=== PATIENT | male | born 1930 | race Caucasian/White ===

== ENCOUNTER 2021-11-06 03:52 | Inpatient (IN) ==
[2021-11-06] MEDS ORDERED: METOPROLOL TARTRATE 5 MG/5 ML VIAL IV ONE (04:07)
[2021-11-06] MEDS ORDERED: DILTIAZEM 25 MG/5 ML VIAL IV ONE (04:11)
[2021-11-06] MEDS ORDERED: SODIUM CHLORIDE 0.9% 1,000 ML IV STA (04:20)
[2021-11-06] MEDS ORDERED: DILTIAZEM 25 MG/5 ML VIAL IV STA (04:20)
[2021-11-06] MEDS ORDERED: METOPROLOL TARTRATE 5 MG/5 ML VIAL IV STA (04:20)
[2021-11-06] MEDS ORDERED: ASPIRIN 325 MG TABLET PO STA (04:21)
[2021-11-06 04:27] LABS: Basophils # 0.1 10*3/uL (0.0-0.2); Basophils % 1.2 % (0.0-0.8); Eosinophils # 0.2 10*3/uL (0.0-0.87); Eosinophils % 3.4 % (0.00-10.9); Hematocrit 42.6 VOL% (42.0-52.0); Hemoglobin 14.3 GM/DL (14.0-18.0); Immature Granulocytes % 0.2 %; Immature Granulocytes Absolute 0.01 #; Lymphocytes # 1.6 10*3/uL (1.4-4.0); Lymphocytes % 28.5 % (21.2-54.2); Mean Corpuscular HGB Conc 33.6 GM/DL (32-36); Mean Corpuscular Volume 91.4 FL (87-102); Mean Platelet Volume 10.9 FL (9.6-12.0); Monocytes # 0.5 10*3/uL (0.11-0.8); Monocytes % 9.2 % (1.7-12.7); Neutrophils % 57.5 % (38.7-73.9); Platelet Count 150 T/CUMM (130-400); Red Blood Count 4.66 MC/CUMM (3.8-5.5); Red Cell Distribution Width 15.3 % (9.3-17.3); White Blood Count 5.6 T/CUMM (4-12)
[2021-11-06 04:36] LABS: PT Patient Result 10.9 SECS (10.1-12.1)
[2021-11-06 04:45] LABS: Albumin 3.7 G/DL (3.4-5.0); Bilirubin,Total 0.6 MG/DL (0.20-1.00); Calcium 9.5 MG/DL (8.5-10.1); Osmolality,Calculated 280.4 MOS/KG (273-304); Potassium 3.9 MMOL/L (3.5-5.1); Total Protein 7.6 G/DL (6.4-8.2)
[2021-11-06] MEDS ORDERED: ENOXAPARIN 100 MG/ML SYRINGE SUBCUT STA (05:02)
[2021-11-06] MEDS ORDERED: ENOXAPARIN 80 MG/0.8 ML SYRINGE SUBCUT STA (05:10)
[2021-11-06] MEDS ORDERED: ACETAMINOPHEN 325 MG TABLET PO PRN (05:20)
[2021-11-06] MEDS ORDERED: MORPHINE 2 MG/1 ML SYRINGE IV PRN (05:20)
[2021-11-06] MEDS ORDERED: ONDANSETRON 4 MG/2 ML VIAL IV PRN (05:20)
[2021-11-06] MEDS ORDERED: hydrALAZINE 20 MG/1 ML VIAL IV PRN (05:20)
[2021-11-06] MEDS ORDERED: GLUCAGON 1 MG VIAL IM PRN (05:20)
[2021-11-06] MEDS ORDERED: DEXTROSE 10% 250 ML BAG IV PRN (05:32)
[2021-11-06] MEDS ORDERED: NEBIVOLOL 5 MG TABLET PO SCH (09:00)
[2021-11-06] MEDS ORDERED: ADENOSINE 6 MG/2 ML VIAL IV ONE ×2 (09:33)
[2021-11-06] MEDS ORDERED: DIAZEPAM 5 MG TABLET PO ONE (09:57)
[2021-11-06] MEDS ORDERED: diphenhydrAMINE CAP 25 MG CAPSULE PO ONE (09:57)
[2021-11-06] MEDS ORDERED: METOPROLOL SUCCINATE XL 25 MG TABLET PO SCH (10:00)
[2021-11-06] MEDS ORDERED: NITROGLYCERIN SL 0.4 MG TABLET SL PRN (10:43)
[2021-11-06 11:11] LABS: Risk Ratio 2.42; VLDL Cholesterol 21.2 MG/DL
[2021-11-06] MEDS: VALSARTAN 80 MG TABLET PO SCH (12:01)
[2021-11-06] MEDS: PANTOPRAZOLE 40 MG TABLET PO SCH (12:01)
[2021-11-06] MEDS ORDERED: MIDAZOLAM 2 MG/2 ML VIAL ONE (14:31)
[2021-11-06] MEDS ORDERED: HEPARIN/NACL 0.9% 2 UNITS/ML 2,000 UNIT/1,000 ML BAG IV ONE (14:31)
[2021-11-06] MEDS ORDERED: NITROGLYCERIN DRIP 50 MG/250 ML BOTTLE IV ONE (14:32)
[2021-11-06] MEDS ORDERED: VERAPAMIL 5 MG/2 ML VIAL ONE (14:32)
[2021-11-06] MEDS ORDERED: HEPARIN/NACL 0.9% 2 UNITS/ML 1,000 UNIT/500 ML BAG IV ONE (14:34)
[2021-11-06] MEDS ORDERED: HYDROmorphone 1 MG/1 ML SYRINGE ONE (14:49)
[2021-11-06] MEDS ORDERED: ENOXAPARIN 30 MG/0.3 ML SYRINGE ONE (15:02)
[2021-11-06] MEDS ORDERED: TIROFIBAN 5,000 MCG/100 ML PREMIX IV ONE (15:25)
[2021-11-06] MEDS ORDERED: TIROFIBAN 5,000 MCG/100 ML PREMIX IV SCH (15:32)
[2021-11-06] MEDS ORDERED: TICAGRELOR 90 MG TABLET ONE (15:57)
[2021-11-06] MEDS ORDERED: SODIUM CHLORIDE 0.9% 1,000 ML IV SCH (16:00)
[2021-11-06] MEDS: TICAGRELOR 90 MG TABLET PO SCH (20:20)
[2021-11-06] MEDS: ROSUVASTATIN 20 MG TABLET PO SCH (20:20)
[2021-11-06] MEDS ORDERED: SIMVASTATIN 20 MG TABLET PO SCH (21:00)
[2021-11-07 04:59] LABS: Basophils # 0.1 10*3/uL (0.0-0.2); Basophils % 0.8 % (0.0-0.8); Eosinophils # 0.2 10*3/uL (0.0-0.87); Eosinophils % 3.3 % (0.00-10.9); Hematocrit 34.7 VOL% (42.0-52.0); Hemoglobin 11.6 GM/DL (14.0-18.0); Immature Granulocytes % 0.3 %; Immature Granulocytes Absolute 0.02 #; Lymphocytes # 1.5 10*3/uL (1.4-4.0); Lymphocytes % 25.7 % (21.2-54.2); Mean Corpuscular HGB Conc 33.4 GM/DL (32-36); Mean Corpuscular Volume 92.3 FL (87-102); Mean Platelet Volume 11.3 FL (9.6-12.0); Monocytes # 0.6 10*3/uL (0.11-0.8); Monocytes % 10.5 % (1.7-12.7); Neutrophils % 59.4 % (38.7-73.9); Platelet Count 137 T/CUMM (130-400); Red Blood Count 3.76 MC/CUMM (3.8-5.5); Red Cell Distribution Width 15.4 % (9.3-17.3)
[2021-11-07 05:22] LABS: Calcium 8.5 MG/DL (8.5-10.1); Osmolality,Calculated 284.8 MOS/KG (273-304); Potassium 3.7 MMOL/L (3.5-5.1)
[2021-11-07 05:27] LABS: CKMB % 7.76 %
[2021-11-07 05:33] LABS: High Sensitive Troponin I* 2268.5 ng/L (0-78)
[2021-11-07] MEDS ORDERED: MAGNESIUM SULF RIDER 2 GM/50 ML PREMIX IV ONE (07:23)
[2021-11-07] MEDS: VALSARTAN 80 MG TABLET PO SCH (10:24)
[2021-11-07] MEDS: ASPIRIN EC 81 MG TABLET PO SCH (10:24)
[2021-11-07] MEDS: PANTOPRAZOLE 40 MG TABLET PO SCH (10:25)
[2021-11-07] MEDS: TICAGRELOR 90 MG TABLET PO SCH ×2 (10:25→21:23)
[2021-11-07] MEDS: ISOSORBIDE MONONITRATE 30 MG TABLET PO SCH (10:26)
[2021-11-07] MEDS: METOPROLOL TARTRATE 25 MG TABLET PO SCH ×2 (13:58→14:31)
[2021-11-07] MEDS: METOPROLOL SUCCINATE XL 25 MG TABLET PO SCH (14:03)
[2021-11-07] MEDS: ROSUVASTATIN 20 MG TABLET PO SCH (21:22)
[2021-11-08 04:47] LABS: Basophils % 0.5 % (0.0-0.8); Eosinophils # 0.2 10*3/uL (0.0-0.87); Hematocrit 33.5 VOL% (42.0-52.0); Hemoglobin 11.2 GM/DL (14.0-18.0); Immature Granulocytes % 0.4 %; Immature Granulocytes Absolute 0.03 #; Lymphocytes # 1.2 10*3/uL (1.4-4.0); Lymphocytes % 15.9 % (21.2-54.2); Mean Corpuscular HGB Conc 33.4 GM/DL (32-36); Mean Corpuscular Volume 91.3 FL (87-102); Mean Platelet Volume 11.2 FL (9.6-12.0); Monocytes # 0.9 10*3/uL (0.11-0.8); Monocytes % 11.2 % (1.7-12.7); Platelet Count 133 T/CUMM (130-400); Red Blood Count 3.67 MC/CUMM (3.8-5.5); Red Cell Distribution Width 15.1 % (9.3-17.3); White Blood Count 7.7 T/CUMM (4-12)
[2021-11-08 05:01] LABS: Calcium 8.5 MG/DL (8.5-10.1); Osmolality,Calculated 280.3 MOS/KG (273-304); Potassium 3.8 MMOL/L (3.5-5.1)
[2021-11-08] MEDS: PANTOPRAZOLE 40 MG TABLET PO SCH (08:33)
[2021-11-08] MEDS: METOPROLOL SUCCINATE XL 25 MG TABLET PO SCH (08:33)
[2021-11-08] MEDS: TICAGRELOR 90 MG TABLET PO SCH ×2 (08:34→22:10)
[2021-11-08] MEDS: ASPIRIN EC 81 MG TABLET PO SCH (08:35)
[2021-11-08] MEDS: VALSARTAN 80 MG TABLET PO SCH (08:35)
[2021-11-08] MEDS: ISOSORBIDE MONONITRATE 30 MG TABLET PO SCH (08:36)
[2021-11-08] MEDS: ROSUVASTATIN 20 MG TABLET PO SCH (22:10)
[2021-11-09 05:49] LABS: Basophils # 0.1 10*3/uL (0.0-0.2); Basophils % 0.8 % (0.0-0.8); Eosinophils # 0.3 10*3/uL (0.0-0.87); Eosinophils % 3.9 % (0.00-10.9); Hematocrit 33.7 VOL% (42.0-52.0); Hemoglobin 11.5 GM/DL (14.0-18.0); Immature Granulocytes % 0.4 %; Immature Granulocytes Absolute 0.03 #; Lymphocytes # 1.3 10*3/uL (1.4-4.0); Lymphocytes % 17.7 % (21.2-54.2); Mean Corpuscular HGB Conc 34.1 GM/DL (32-36); Mean Corpuscular Volume 90.6 FL (87-102); Mean Platelet Volume 11.5 FL (9.6-12.0); Monocytes % 13.5 % (1.7-12.7); Neutrophils % 63.7 % (38.7-73.9); Platelet Count 136 T/CUMM (130-400); Red Blood Count 3.72 MC/CUMM (3.8-5.5); Red Cell Distribution Width 15.1 % (9.3-17.3); White Blood Count 7.5 T/CUMM (4-12)
[2021-11-09 06:24] LABS: Calcium 8.9 MG/DL (8.5-10.1); Osmolality,Calculated 282.1 MOS/KG (273-304); Potassium 3.9 MMOL/L (3.5-5.1)
[2021-11-09] MEDS: ASPIRIN EC 81 MG TABLET PO SCH (09:15)
[2021-11-09] MEDS: TICAGRELOR 90 MG TABLET PO SCH (09:15)
[2021-11-09] MEDS: PANTOPRAZOLE 40 MG TABLET PO SCH (09:15)
[2021-11-09] MEDS: ISOSORBIDE MONONITRATE 30 MG TABLET PO SCH (09:15)
[2021-11-09] MEDS: VALSARTAN 80 MG TABLET PO SCH (09:15)
[2021-11-09] MEDS: METOPROLOL SUCCINATE XL 25 MG TABLET PO SCH (09:15)
[2021-11-09 12:13] VITALS: BP 121/50
== END 2021-11-09 12:34 | disposition home health service (06) | DRG 247 ==
LOC: SUATTDRO → N.ED 03:52 → N.EDINP 03:52 → N.TELES 07:58
PROVIDERS: ADMIT Hospitalist; ATTEND Family Medicine

== ENCOUNTER 2022-01-10 10:33 | Observation (INO) ==
[2022-01-10 11:02] LABS: Basophils # 0.1 10*3/uL (0.0-0.2); Basophils % 1.6 % (0.0-0.8); Eosinophils # 0.2 10*3/uL (0.0-0.87); Hematocrit 37.8 VOL% (42.0-52.0); Hemoglobin 12.7 GM/DL (14.0-18.0); Immature Granulocytes % 0.5 %; Immature Granulocytes Absolute 0.02 #; Lymphocytes # 1.1 10*3/uL (1.4-4.0); Lymphocytes % 26.1 % (21.2-54.2); Mean Corpuscular HGB Conc 33.6 GM/DL (32-36); Mean Corpuscular Volume 91.7 FL (87-102); Monocytes # 0.4 10*3/uL (0.11-0.8); Monocytes % 8.9 % (1.7-12.7); Neutrophils % 58.9 % (38.7-73.9); Platelet Count 157 T/CUMM (130-400); Red Blood Count 4.12 MC/CUMM (3.8-5.5); Red Cell Distribution Width 15.9 % (9.3-17.3); White Blood Count 4.3 T/CUMM (4-12)
[2022-01-10 11:15] LABS: PT Patient Result 10.9 SECS (10.1-12.1)
[2022-01-10 11:20] LABS: Albumin 3.4 G/DL (3.4-5.0); Bilirubin,Total 0.6 MG/DL (0.20-1.00); Calcium 9.5 MG/DL (8.5-10.1); Potassium 3.9 MMOL/L (3.5-5.1); Total Protein 6.9 G/DL (6.4-8.2)
[2022-01-10 11:24] LABS: PT Patient Result 10.9 SECS (10.1-12.1); Partial Thromboplastin Time 30.4 SECS (23.7-32.9)
[2022-01-10] MEDS ORDERED: POTASSIUM CHLORIDE 20 MEQ TABLET PO PRN ×2 (13:02)
[2022-01-10] MEDS ORDERED: MAGNESIUM SULF RIDER 2 GM/50 ML PREMIX IV PRN (13:02)
[2022-01-10] MEDS ORDERED: MAGNESIUM SULF RIDER 4 GM/100 ML PREMIX IV PRN (13:02)
[2022-01-10] MEDS ORDERED: NITROGLYCERIN SL 0.4 MG TABLET SL PRN (13:09)
[2022-01-10] MEDS: TICAGRELOR 90 MG TABLET PO SCH (20:52)
[2022-01-10] MEDS: FAMOTIDINE 20 MG TABLET PO SCH (20:52)
[2022-01-10] MEDS: METOPROLOL TARTRATE 25 MG TABLET PO SCH (20:52)
[2022-01-10] MEDS ORDERED: ROSUVASTATIN 20 MG TABLET PO SCH (21:00)
[2022-01-10] MEDS ORDERED: ASPIRIN EC 81 MG TABLET PO SCH (21:00)
[2022-01-11 04:57] LABS: Basophils # 0.1 10*3/uL (0.0-0.2); Basophils % 1.2 % (0.0-0.8); Eosinophils # 0.3 10*3/uL (0.0-0.87); Hematocrit 36.8 VOL% (42.0-52.0); Hemoglobin 12.2 GM/DL (14.0-18.0); Immature Granulocytes % 0.2 %; Immature Granulocytes Absolute 0.01 #; Lymphocytes # 1.5 10*3/uL (1.4-4.0); Lymphocytes % 30.3 % (21.2-54.2); Mean Corpuscular HGB Conc 33.2 GM/DL (32-36); Mean Corpuscular Volume 93.2 FL (87-102); Mean Platelet Volume 10.7 FL (9.6-12.0); Monocytes # 0.5 10*3/uL (0.11-0.8); Monocytes % 10.6 % (1.7-12.7); Neutrophils % 52.7 % (38.7-73.9); Platelet Count 149 T/CUMM (130-400); Red Blood Count 3.95 MC/CUMM (3.8-5.5)
[2022-01-11 05:47] LABS: Albumin 3.2 G/DL (3.4-5.0); Bilirubin,Total 0.7 MG/DL (0.20-1.00); Calcium 9.5 MG/DL (8.5-10.1); Osmolality,Calculated 287.7 MOS/KG (273-304); Potassium 3.7 MMOL/L (3.5-5.1); Total Protein 6.8 G/DL (6.4-8.2)
[2022-01-11 05:50] LABS: Risk Ratio 2.08; Thyroid Stimulating Hormone 1.5 uIU/ml (0.358-3.74); VLDL Cholesterol 14.6 MG/DL
[2022-01-11] MEDS ORDERED: ISOSORBIDE MONONITRATE 30 MG TABLET PO SCH (09:00)
[2022-01-11] MEDS ORDERED: PANTOPRAZOLE 40 MG TABLET PO SCH (09:00)
[2022-01-11] MEDS ORDERED: VALSARTAN 80 MG TABLET PO SCH (09:00)
[2022-01-11 11:49] VITALS: BP 163/64
[2022-01-11] MEDS: TICAGRELOR 90 MG TABLET PO SCH (12:54)
[2022-01-11] MEDS: FAMOTIDINE 20 MG TABLET PO SCH (12:55)
[2022-01-11] MEDS: METOPROLOL TARTRATE 25 MG TABLET PO SCH (12:56)
[2022-01-11] MEDS ORDERED: INFLUENZA VIRUS VACCINE 0.5 ML SYRINGE IM ONE (13:08)
== END 2022-01-11 13:48 | disposition home or self-care (01) ==
LOC: N.ED 10:33 → N.EDINP 10:33 → N.2W 13:54 → N.TELEN 18:21
PROVIDERS: ADMIT Emergency Medicine; ATTEND Emergency Medicine

== ENCOUNTER 2022-01-22 21:34 | Observation (INO) ==
[2022-01-22] MEDS ORDERED: DILTIAZEM 25 MG/5 ML VIAL IV ONE (21:52)
[2022-01-22] MEDS ORDERED: ASPIRIN 325 MG TABLET PO STA (21:59)
[2022-01-22] MEDS ORDERED: DILTIAZEM 25 MG/5 ML VIAL IV STA (22:01)
[2022-01-22 22:20] LABS: Basophils # 0.1 10*3/uL (0.0-0.2); Basophils % 0.9 % (0.0-0.8); Eosinophils # 0.2 10*3/uL (0.0-0.87); Eosinophils % 2.8 % (0.00-10.9); Hematocrit 38.7 VOL% (42.0-52.0); Immature Granulocytes % 0.2 %; Immature Granulocytes Absolute 0.01 #; Lymphocytes # 1.4 10*3/uL (1.4-4.0); Lymphocytes % 21.9 % (21.2-54.2); Mean Corpuscular HGB Conc 33.6 GM/DL (32-36); Mean Corpuscular Volume 91.3 FL (87-102); Mean Platelet Volume 10.9 FL (9.6-12.0); Monocytes # 0.8 10*3/uL (0.11-0.8); Monocytes % 12.3 % (1.7-12.7); Neutrophils % 61.9 % (38.7-73.9); Platelet Count 195 T/CUMM (130-400); Red Blood Count 4.24 MC/CUMM (3.8-5.5); Red Cell Distribution Width 15.7 % (9.3-17.3); White Blood Count 6.4 T/CUMM (4-12)
[2022-01-22 22:25] LABS: Albumin 3.5 G/DL (3.4-5.0); Bilirubin,Total 0.7 MG/DL (0.20-1.00); Calcium 9.1 MG/DL (8.5-10.1); Osmolality,Calculated 283.3 MOS/KG (273-304); Potassium 3.6 MMOL/L (3.5-5.1); Thyroid Stimulating Hormone 2.51 uIU/ml (0.358-3.74); Total Protein 7.6 G/DL (6.4-8.2)
[2022-01-22 22:30] LABS: PT Patient Result 10.9 SECS (10.1-12.1)
[2022-01-22] MEDS ORDERED: ONDANSETRON 4 MG/2 ML VIAL IV PRN (22:53)
[2022-01-22] MEDS ORDERED: ACETAMINOPHEN 325 MG TABLET PO PRN (22:53)
[2022-01-23 05:01] LABS: Basophils # 0.1 10*3/uL (0.0-0.2); Basophils % 1.1 % (0.0-0.8); Eosinophils # 0.2 10*3/uL (0.0-0.87); Eosinophils % 3.2 % (0.00-10.9); Hematocrit 33.6 VOL% (42.0-52.0); Hemoglobin 11.4 GM/DL (14.0-18.0); Immature Granulocytes % 0.4 %; Immature Granulocytes Absolute 0.02 #; Lymphocytes # 1.6 10*3/uL (1.4-4.0); Lymphocytes % 28.1 % (21.2-54.2); Mean Corpuscular HGB Conc 33.9 GM/DL (32-36); Mean Corpuscular Volume 90.1 FL (87-102); Monocytes # 0.7 10*3/uL (0.11-0.8); Monocytes % 11.6 % (1.7-12.7); Neutrophils % 55.6 % (38.7-73.9); Platelet Count 164 T/CUMM (130-400); Red Blood Count 3.73 MC/CUMM (3.8-5.5); Red Cell Distribution Width 15.4 % (9.3-17.3); White Blood Count 5.6 T/CUMM (4-12)
[2022-01-23 05:22] LABS: Albumin 2.9 G/DL (3.4-5.0); Bilirubin,Total 0.6 MG/DL (0.20-1.00); Calcium 9.4 MG/DL (8.5-10.1); Potassium 3.3 MMOL/L (3.5-5.1); Total Protein 6.7 G/DL (6.4-8.2)
[2022-01-23] MEDS ORDERED: POTASSIUM CHLORIDE 20 MEQ TABLET PO ONE (07:38)
[2022-01-23] MEDS ORDERED: VALSARTAN 80 MG TABLET PO SCH (09:00)
[2022-01-23] MEDS ORDERED: TICAGRELOR 90 MG TABLET PO SCH (09:00)
[2022-01-23] MEDS ORDERED: DILTIAZEM CD 120 MG CAPSULE PO SCH (09:00)
[2022-01-23] MEDS ORDERED: ISOSORBIDE MONONITRATE 30 MG TABLET PO SCH (09:00)
[2022-01-23] MEDS ORDERED: METOPROLOL TARTRATE 25 MG TABLET PO SCH (09:00)
[2022-01-23] MEDS ORDERED: PANTOPRAZOLE 40 MG TABLET PO SCH (09:00)
[2022-01-23 11:48] VITALS: BP 126/52
[2022-01-23] MEDS ORDERED: ASPIRIN EC 81 MG TABLET PO SCH (21:00)
[2022-01-23] MEDS ORDERED: ROSUVASTATIN 20 MG TABLET PO SCH (21:00)
== END 2022-01-23 14:16 | disposition home or self-care (01) ==
LOC: N.ED 21:34 → N.TELES 21:34
PROVIDERS: ADMIT Internal Medicine; ATTEND Internal Medicine

== ENCOUNTER 2022-02-24 10:49 | Inpatient (IN) ==
[~2022-02-24 10:49] MED LIST: BISACODYL 5 MG TABLET PO PRN; MAGNESIUM SULF RIDER 2 GM/50 ML PREMIX IV PRN; MAGNESIUM SULF RIDER 4 GM/100 ML PREMIX IV PRN; MORPHINE 2 MG/1 ML SYRINGE IV PRN; ZALEPLON 5 MG CAPSULE PO PRN; hydrALAZINE 20 MG/1 ML VIAL IV PRN
[2022-02-24] MEDS ORDERED: VANCOMYCIN INJ 1,000 MG in SODIUM CHLORIDE 0.9% 250 ML IV SCH (11:00)
[2022-02-24] MEDS ORDERED: VANCOMYCIN INJ 500 MG in SODIUM CHLORIDE 0.9% 100 ML IV ONE (11:03)
[2022-02-24] MEDS ORDERED: VANCOMYCIN 500 MG VIAL IRRIG ONE (11:03)
[2022-02-24 11:33] LABS: Basophils # 0.1 10*3/uL (0.0-0.2); Basophils % 0.7 % (0.0-0.8); Eosinophils # 0.1 10*3/uL (0.0-0.87); Eosinophils % 1.3 % (0.00-10.9); Hematocrit 33.6 VOL% (42.0-52.0); Hemoglobin 11.4 GM/DL (14.0-18.0); Immature Granulocytes % 0.5 %; Immature Granulocytes Absolute 0.05 #; Lymphocytes # 1.1 10*3/uL (1.4-4.0); Lymphocytes % 10.4 % (21.2-54.2); Mean Corpuscular HGB Conc 33.9 GM/DL (32-36); Mean Corpuscular Volume 90.3 FL (87-102); Mean Platelet Volume 9.4 FL (9.6-12.0); Monocytes # 1.3 10*3/uL (0.11-0.8); Monocytes % 12.2 % (1.7-12.7); Neutrophils % 74.9 % (38.7-73.9); Platelet Count 269 T/CUMM (130-400); Red Blood Count 3.72 MC/CUMM (3.8-5.5); Red Cell Distribution Width 15.6 % (9.3-17.3); White Blood Count 10.4 T/CUMM (4-12)
[2022-02-24 12:02] LABS: Albumin 2.9 G/DL (3.4-5.0); Bilirubin,Total 0.7 MG/DL (0.20-1.00); Calcium 9.6 MG/DL (8.5-10.1); Osmolality,Calculated 280.4 MOS/KG (273-304); Potassium 3.7 MMOL/L (3.5-5.1)
[2022-02-24 12:28] LABS: RBC,Urine 379 /HPF (0-4)
[2022-02-24 12:29] LABS: Bilirubin,Urine Negative (Negative); Blood, Urine Large mg/dL (Negative); Glucose,Urine (UA) Negative (Negative); Ketones,Urine Negative (Negative); Nitrite,Urine Negative (Negative); Protein,Urine 100 mg/dL (Negative); Urine Appearance Slightly Cloudy (Clear); Urine Color Light Red (Yellow); Urine pH 6.5 (4.5-8.0)
[2022-02-24] MEDS ORDERED: VANCOMYCIN 1,000 MG VIAL ONE (13:15)
[2022-02-24] MEDS: SODIUM CHLORIDE 0.9% 1,000 ML IV SCH (13:37)
[2022-02-24] MEDS ORDERED: diphenhydrAMINE CAP 25 MG CAPSULE ONE (14:47)
[2022-02-24] MEDS ORDERED: DIAZEPAM 5 MG TABLET ONE (14:47)
[2022-02-24] MEDS ORDERED: diphenhydrAMINE CAP 25 MG CAPSULE PO ONE (15:00)
[2022-02-24] MEDS ORDERED: DIAZEPAM 5 MG TABLET PO ONE (15:00)
[2022-02-24] MEDS ORDERED: HEPARIN/NACL 0.9% 2 UNITS/ML 1,000 UNIT/500 ML BAG IV ONE (15:32)
[2022-02-24] MEDS ORDERED: VANCOMYCIN 500 MG VIAL ONE ×2 (15:32→16:26)
[2022-02-24] MEDS ORDERED: MIDAZOLAM 2 MG/2 ML VIAL ONE (15:51)
[2022-02-24] MEDS ORDERED: fentaNYL 100 MCG/2 ML VIAL ONE (15:51)
[2022-02-24] MEDS ORDERED: TISSUE ADHESIVE 1 EACH APPLICATOR TOP ONE (16:32)
[2022-02-24] MEDS ORDERED: ACETAMINOPHEN 500 MG TABLET PO PRN (16:42)
[2022-02-24 18:50] LABS: Basophils # 0.1 10*3/uL (0.0-0.2); Basophils % 0.7 % (0.0-0.8); Eosinophils # 0.1 10*3/uL (0.0-0.87); Eosinophils % 1.2 % (0.00-10.9); Immature Granulocytes % 0.4 %; Immature Granulocytes Absolute 0.03 #; Lymphocytes # 1.4 10*3/uL (1.4-4.0); Mean Corpuscular HGB Conc 34.4 GM/DL (32-36); Mean Corpuscular Volume 89.6 FL (87-102); Mean Platelet Volume 9.6 FL (9.6-12.0); Monocytes % 11.4 % (1.7-12.7); Neutrophils % 70.3 % (38.7-73.9); Platelet Count 246 T/CUMM (130-400); Red Blood Count 3.57 MC/CUMM (3.8-5.5); Red Cell Distribution Width 15.4 % (9.3-17.3); White Blood Count 8.5 T/CUMM (4-12)
[2022-02-24] MEDS: METOPROLOL TARTRATE 25 MG TABLET PO SCH (21:01)
[2022-02-24] MEDS: ASPIRIN EC 81 MG TABLET PO SCH (21:01)
[2022-02-24] MEDS: TICAGRELOR 90 MG TABLET PO SCH (21:01)
[2022-02-24] MEDS: SULFAMETHOX/TRIMETHOPRIM 800-160 MG TABLET PO SCH (21:01)
[2022-02-25 04:49] LABS: Basophils # 0.1 10*3/uL (0.0-0.2); Basophils % 0.8 % (0.0-0.8); Eosinophils # 0.1 10*3/uL (0.0-0.87); Eosinophils % 1.1 % (0.00-10.9); Hematocrit 26.7 VOL% (42.0-52.0); Hemoglobin 9.2 GM/DL (14.0-18.0); Immature Granulocytes % 0.4 %; Immature Granulocytes Absolute 0.03 #; Lymphocytes % 14.2 % (21.2-54.2); Mean Corpuscular HGB Conc 34.5 GM/DL (32-36); Mean Corpuscular Volume 89.6 FL (87-102); Mean Platelet Volume 10.1 FL (9.6-12.0); Monocytes # 0.7 10*3/uL (0.11-0.8); Monocytes % 9.6 % (1.7-12.7); Neutrophils % 73.9 % (38.7-73.9); Platelet Count 238 T/CUMM (130-400); Red Blood Count 2.98 MC/CUMM (3.8-5.5); Red Cell Distribution Width 15.4 % (9.3-17.3); White Blood Count 7.3 T/CUMM (4-12)
[2022-02-25 05:29] LABS: Albumin 2.2 G/DL (3.4-5.0); Bilirubin,Total 0.5 MG/DL (0.20-1.00); Calcium 8.4 MG/DL (8.5-10.1); Osmolality,Calculated 289.7 MOS/KG (273-304); Potassium 3.2 MMOL/L (3.5-5.1); Total Protein 5.8 G/DL (6.4-8.2)
[2022-02-25 05:30] LABS: Calcium 8.7 MG/DL (8.5-10.1); Osmolality,Calculated 287.8 MOS/KG (273-304)
[2022-02-25] MEDS: PANTOPRAZOLE 40 MG TABLET PO SCH ×2 (06:05→09:52)
[2022-02-25] MEDS ORDERED: VANCOMYCIN INJ 1,000 MG in SODIUM CHLORIDE 0.9% 250 ML IV SCH (09:00)
[2022-02-25] MEDS: SULFAMETHOX/TRIMETHOPRIM 800-160 MG TABLET PO SCH ×2 (09:37→21:46)
[2022-02-25] MEDS: ROSUVASTATIN 20 MG TABLET PO SCH (09:37)
[2022-02-25] MEDS: ISOSORBIDE MONONITRATE 30 MG TABLET PO SCH (09:37)
[2022-02-25] MEDS: DILTIAZEM CD 120 MG CAPSULE PO SCH (09:38)
[2022-02-25] MEDS: TICAGRELOR 90 MG TABLET PO SCH ×2 (09:38→21:46)
[2022-02-25] MEDS: METOPROLOL TARTRATE 25 MG TABLET PO SCH ×2 (09:38→21:47)
[2022-02-25] MEDS: SODIUM CHLORIDE 0.9% 1,000 ML IV SCH (09:53)
[2022-02-25] MEDS ORDERED: POTASSIUM CHLORIDE 20 MEQ TABLET PO ONE (10:27)
[2022-02-25 12:03] LABS: Hematocrit 23.4 VOL% (42.0-52.0); Hemoglobin 8.1 GM/DL (14.0-18.0)
[2022-02-25] MEDS ORDERED: LIDOCAINE 1%/EPI INJ 20 ML VIAL ONE (12:23)
[2022-02-25] MEDS ORDERED: SODIUM CHLORIDE 0.9% 1,000 ML IV PRN (14:51)
[2022-02-25] MEDS: FERROUS SULFATE 325 MG TABLET PO SCH ×2 (15:04→21:47)
[2022-02-25] MEDS: ONDANSETRON 4 MG/2 ML VIAL IV PRN (19:32)
[2022-02-25] MEDS ORDERED: POTASSIUM CHLORIDE 20 MEQ TABLET PO SCH (21:00)
[2022-02-25] MEDS: ASPIRIN EC 81 MG TABLET PO SCH (21:46)
[2022-02-25] MEDS: MAGNESIUM OXIDE 400 MG TABLET PO SCH (21:47)
[2022-02-26 04:49] LABS: Basophils # 0.1 10*3/uL (0.0-0.2); Basophils % 1.1 % (0.0-0.8); Eosinophils # 0.2 10*3/uL (0.0-0.87); Eosinophils % 2.1 % (0.00-10.9); Hematocrit 28.6 VOL% (42.0-52.0); Hemoglobin 9.3 GM/DL (14.0-18.0); Immature Granulocytes % 0.6 %; Immature Granulocytes Absolute 0.05 #; Lymphocytes # 1.6 10*3/uL (1.4-4.0); Lymphocytes % 19.3 % (21.2-54.2); Mean Corpuscular HGB Conc 32.5 GM/DL (32-36); Mean Corpuscular Volume 91.4 FL (87-102); Mean Platelet Volume 10.3 FL (9.6-12.0); Monocytes # 0.9 10*3/uL (0.11-0.8); Monocytes % 11.1 % (1.7-12.7); Neutrophils % 65.8 % (38.7-73.9); Platelet Count 198 T/CUMM (130-400); Red Blood Count 3.13 MC/CUMM (3.8-5.5); White Blood Count 8.2 T/CUMM (4-12)
[2022-02-26 05:07] LABS: Bilirubin,Total 0.5 MG/DL (0.20-1.00); Calcium 8.4 MG/DL (8.5-10.1); Osmolality,Calculated 285.1 MOS/KG (273-304); Potassium 4.2 MMOL/L (3.5-5.1); Total Protein 5.3 G/DL (6.4-8.2)
[2022-02-26] MEDS: PANTOPRAZOLE 40 MG TABLET PO SCH ×2 (05:47→09:54)
[2022-02-26] MEDS: SODIUM CHLORIDE 0.9% 1,000 ML IV SCH ×2 (05:55→14:23)
[2022-02-26] MEDS: ONDANSETRON 4 MG/2 ML VIAL IV PRN ×2 (09:54→14:31)
[2022-02-26] MEDS: MAGNESIUM OXIDE 400 MG TABLET PO SCH ×2 (09:54→21:37)
[2022-02-26] MEDS: DILTIAZEM CD 120 MG CAPSULE PO SCH (09:54)
[2022-02-26] MEDS: POTASSIUM CHLORIDE 20 MEQ TABLET PO SCH (09:54)
[2022-02-26] MEDS: SULFAMETHOX/TRIMETHOPRIM 800-160 MG TABLET PO SCH ×2 (09:54→21:37)
[2022-02-26] MEDS: ROSUVASTATIN 20 MG TABLET PO SCH (09:54)
[2022-02-26] MEDS: ISOSORBIDE MONONITRATE 30 MG TABLET PO SCH (09:55)
[2022-02-26] MEDS: METOPROLOL TARTRATE 25 MG TABLET PO SCH ×2 (09:55→21:37)
[2022-02-26] MEDS: FERROUS SULFATE 325 MG TABLET PO SCH ×3 (09:55→21:37)
[2022-02-26] MEDS: TICAGRELOR 90 MG TABLET PO SCH ×2 (09:57→21:37)
[2022-02-26] MEDS ORDERED: cefTRIAXone 1,000 MG in SODIUM CHLORIDE 0.9% 100 ML IV SCH (14:00)
[2022-02-26] MEDS ORDERED: ZINC OXIDE PASTE 113 GM TUBE TOP PRN (15:19)
[2022-02-26] MEDS: GENTAMICIN INJ 240 MG in SODIUM CHLORIDE 0.9% 100 ML IV SCH (15:23)
[2022-02-26] MEDS: ASPIRIN EC 81 MG TABLET PO SCH (21:37)
[2022-02-27 05:03] LABS: Basophils # 0.1 10*3/uL (0.0-0.2); Basophils % 0.9 % (0.0-0.8); Eosinophils # 0.3 10*3/uL (0.0-0.87); Eosinophils % 3.7 % (0.00-10.9); Hematocrit 25.1 VOL% (42.0-52.0); Hemoglobin 8.4 GM/DL (14.0-18.0); Immature Granulocytes % 0.6 %; Immature Granulocytes Absolute 0.04 #; Lymphocytes # 1.3 10*3/uL (1.4-4.0); Lymphocytes % 18.8 % (21.2-54.2); Mean Corpuscular HGB Conc 33.5 GM/DL (32-36); Monocytes # 0.8 10*3/uL (0.11-0.8); Monocytes % 12.1 % (1.7-12.7); Neutrophils % 63.9 % (38.7-73.9); Platelet Count 174 T/CUMM (130-400); Red Blood Count 2.82 MC/CUMM (3.8-5.5); Red Cell Distribution Width 15.1 % (9.3-17.3); White Blood Count 6.8 T/CUMM (4-12)
[2022-02-27 05:24] LABS: Bilirubin,Total 0.4 MG/DL (0.20-1.00); Calcium 8.2 MG/DL (8.5-10.1); Osmolality,Calculated 280.3 MOS/KG (273-304); Potassium 3.7 MMOL/L (3.5-5.1); Total Protein 5.4 G/DL (6.4-8.2)
[2022-02-27] MEDS: PANTOPRAZOLE 40 MG TABLET PO SCH ×2 (05:57→09:03)
[2022-02-27] MEDS: DILTIAZEM CD 120 MG CAPSULE PO SCH (08:58)
[2022-02-27] MEDS: SULFAMETHOX/TRIMETHOPRIM 800-160 MG TABLET PO SCH ×2 (09:00→21:28)
[2022-02-27] MEDS: ROSUVASTATIN 20 MG TABLET PO SCH (09:01)
[2022-02-27] MEDS: FERROUS SULFATE 325 MG TABLET PO SCH ×3 (09:01→21:28)
[2022-02-27] MEDS: TICAGRELOR 90 MG TABLET PO SCH ×2 (09:02→21:28)
[2022-02-27] MEDS: ISOSORBIDE MONONITRATE 30 MG TABLET PO SCH (09:02)
[2022-02-27] MEDS: METOPROLOL TARTRATE 25 MG TABLET PO SCH ×2 (09:02→21:28)
[2022-02-27] MEDS: MAGNESIUM OXIDE 400 MG TABLET PO SCH ×3 (09:02→21:28)
[2022-02-27] MEDS: POTASSIUM CHLORIDE 20 MEQ TABLET PO SCH (09:03)
[2022-02-27] MEDS: SODIUM CHLORIDE 0.9% 1,000 ML IV SCH (10:17)
[2022-02-27] MEDS: cefTAZidime 500 MG in SODIUM CHLORIDE 0.9% 100 ML IV SCH (10:51)
[2022-02-27] MEDS: ONDANSETRON 4 MG/2 ML VIAL IV PRN (12:05)
[2022-02-27] MEDS: GENTAMICIN INJ 240 MG in SODIUM CHLORIDE 0.9% 100 ML IV SCH (14:58)
[2022-02-27] MEDS: ASPIRIN EC 81 MG TABLET PO SCH (21:28)
[2022-02-28] MEDS: cefTAZidime 500 MG in SODIUM CHLORIDE 0.9% 100 ML IV SCH ×3 (00:50→23:14)
[2022-02-28] MEDS: PANTOPRAZOLE 40 MG TABLET PO SCH ×2 (05:10→10:23)
[2022-02-28 05:36] LABS: Basophils # 0.1 10*3/uL (0.0-0.2); Eosinophils # 0.2 10*3/uL (0.0-0.87); Eosinophils % 3.1 % (0.00-10.9); Hematocrit 27.1 VOL% (42.0-52.0); Hemoglobin 9.1 GM/DL (14.0-18.0); Immature Granulocytes % 0.7 %; Immature Granulocytes Absolute 0.04 #; Lymphocytes # 1.1 10*3/uL (1.4-4.0); Mean Corpuscular HGB Conc 33.6 GM/DL (32-36); Mean Platelet Volume 9.8 FL (9.6-12.0); Monocytes # 0.8 10*3/uL (0.11-0.8); Monocytes % 13.4 % (1.7-12.7); Neutrophils % 63.8 % (38.7-73.9); Platelet Count 199 T/CUMM (130-400); Red Blood Count 3.01 MC/CUMM (3.8-5.5); Red Cell Distribution Width 15.1 % (9.3-17.3); White Blood Count 6.1 T/CUMM (4-12)
[2022-02-28 05:52] LABS: Calcium 8.6 MG/DL (8.5-10.1); Osmolality,Calculated 281.1 MOS/KG (273-304); Potassium 3.6 MMOL/L (3.5-5.1)
[2022-02-28] MEDS: SULFAMETHOX/TRIMETHOPRIM 800-160 MG TABLET PO SCH ×2 (10:20→20:58)
[2022-02-28] MEDS: SODIUM CHLORIDE 0.9% 1,000 ML IV SCH ×2 (10:21→14:32)
[2022-02-28] MEDS: TICAGRELOR 90 MG TABLET PO SCH ×2 (10:21→20:58)
[2022-02-28] MEDS: ISOSORBIDE MONONITRATE 30 MG TABLET PO SCH (10:22)
[2022-02-28] MEDS: DILTIAZEM CD 120 MG CAPSULE PO SCH (10:22)
[2022-02-28] MEDS: MAGNESIUM OXIDE 400 MG TABLET PO SCH ×3 (10:22→20:58)
[2022-02-28] MEDS: ROSUVASTATIN 20 MG TABLET PO SCH (10:22)
[2022-02-28] MEDS: FERROUS SULFATE 325 MG TABLET PO SCH ×3 (10:22→20:58)
[2022-02-28] MEDS: AMIODARONE 200 MG TABLET PO SCH (10:23)
[2022-02-28] MEDS: METOPROLOL TARTRATE 25 MG TABLET PO SCH ×2 (10:23→20:58)
[2022-02-28] MEDS: POTASSIUM CHLORIDE 20 MEQ TABLET PO SCH (10:23)
[2022-02-28] MEDS ORDERED: CYANOCOBALAMIN 1000 MCG/1 ML VIAL IM ONE (14:22)
[2022-02-28] MEDS: GENTAMICIN INJ 240 MG in SODIUM CHLORIDE 0.9% 100 ML IV SCH (14:46)
[2022-02-28] MEDS: ASPIRIN EC 81 MG TABLET PO SCH (20:58)
[2022-03-01 05:27] LABS: Basophils # 0.1 10*3/uL (0.0-0.2); Basophils % 1.2 % (0.0-0.8); Eosinophils # 0.2 10*3/uL (0.0-0.87); Eosinophils % 3.9 % (0.00-10.9); Hematocrit 26.4 VOL% (42.0-52.0); Hemoglobin 8.7 GM/DL (14.0-18.0); Immature Granulocytes % 0.7 %; Immature Granulocytes Absolute 0.04 #; Lymphocytes % 17.7 % (21.2-54.2); Mean Corpuscular Volume 90.1 FL (87-102); Mean Platelet Volume 9.5 FL (9.6-12.0); Monocytes # 0.8 10*3/uL (0.11-0.8); Monocytes % 13.1 % (1.7-12.7); Neutrophils % 63.4 % (38.7-73.9); Platelet Count 188 T/CUMM (130-400); Red Blood Count 2.93 MC/CUMM (3.8-5.5); Red Cell Distribution Width 15.2 % (9.3-17.3); White Blood Count 5.9 T/CUMM (4-12)
[2022-03-01 05:45] LABS: Calcium 8.6 MG/DL (8.5-10.1); Osmolality,Calculated 276.5 MOS/KG (273-304); Potassium 3.7 MMOL/L (3.5-5.1)
[2022-03-01] MEDS: PANTOPRAZOLE 40 MG TABLET PO SCH ×2 (05:50→10:21)
[2022-03-01] MEDS: SULFAMETHOX/TRIMETHOPRIM 800-160 MG TABLET PO SCH ×2 (10:12→20:53)
[2022-03-01] MEDS: MAGNESIUM OXIDE 400 MG TABLET PO SCH ×3 (10:13→20:54)
[2022-03-01] MEDS: BACILLUS COAGULANS CAPLET PO SCH (10:13)
[2022-03-01] MEDS: ROSUVASTATIN 20 MG TABLET PO SCH (10:14)
[2022-03-01] MEDS: ISOSORBIDE MONONITRATE 30 MG TABLET PO SCH (10:14)
[2022-03-01] MEDS: FERROUS SULFATE 325 MG TABLET PO SCH ×3 (10:14→20:53)
[2022-03-01] MEDS: AMIODARONE 200 MG TABLET PO SCH (10:14)
[2022-03-01] MEDS: TICAGRELOR 90 MG TABLET PO SCH ×2 (10:14→20:53)
[2022-03-01] MEDS: METOPROLOL TARTRATE 25 MG TABLET PO SCH ×2 (10:14→20:53)
[2022-03-01] MEDS: POTASSIUM CHLORIDE 20 MEQ TABLET PO SCH (10:14)
[2022-03-01] MEDS: DILTIAZEM CD 120 MG CAPSULE PO SCH (10:15)
[2022-03-01] MEDS: SODIUM CHLORIDE 0.9% 1,000 ML IV SCH (10:24)
[2022-03-01] MEDS: cefTAZidime 500 MG in SODIUM CHLORIDE 0.9% 100 ML IV SCH ×2 (10:56→23:55)
[2022-03-01] MEDS: GENTAMICIN INJ 240 MG in SODIUM CHLORIDE 0.9% 100 ML IV SCH (14:34)
[2022-03-01] MEDS: ASPIRIN EC 81 MG TABLET PO SCH (20:53)
[2022-03-02 04:37] LABS: Basophils % 0.8 % (0.0-0.8); Eosinophils # 0.2 10*3/uL (0.0-0.87); Eosinophils % 3.6 % (0.00-10.9); Hematocrit 27.1 VOL% (42.0-52.0); Hemoglobin 9.1 GM/DL (14.0-18.0); Immature Granulocytes % 0.4 %; Immature Granulocytes Absolute 0.02 #; Lymphocytes # 0.9 10*3/uL (1.4-4.0); Lymphocytes % 16.5 % (21.2-54.2); Mean Corpuscular HGB Conc 33.6 GM/DL (32-36); Mean Corpuscular Volume 89.7 FL (87-102); Mean Platelet Volume 9.7 FL (9.6-12.0); Monocytes # 0.7 10*3/uL (0.11-0.8); Monocytes % 13.3 % (1.7-12.7); Neutrophils % 65.4 % (38.7-73.9); Platelet Count 225 T/CUMM (130-400); Red Blood Count 3.02 MC/CUMM (3.8-5.5); Red Cell Distribution Width 15.2 % (9.3-17.3); White Blood Count 5.3 T/CUMM (4-12)
[2022-03-02 04:58] LABS: Calcium 8.9 MG/DL (8.5-10.1); Osmolality,Calculated 275.5 MOS/KG (273-304); Potassium 3.8 MMOL/L (3.5-5.1)
[2022-03-02] MEDS: PANTOPRAZOLE 40 MG TABLET PO SCH (05:28)
[2022-03-02] MEDS: SODIUM CHLORIDE 0.9% 1,000 ML IV SCH ×2 (06:44→09:30)
[2022-03-02] MEDS: SULFAMETHOX/TRIMETHOPRIM 800-160 MG TABLET PO SCH ×2 (09:22→21:25)
[2022-03-02] MEDS: ISOSORBIDE MONONITRATE 30 MG TABLET PO SCH (09:22)
[2022-03-02] MEDS: ROSUVASTATIN 20 MG TABLET PO SCH (09:22)
[2022-03-02] MEDS: BACILLUS COAGULANS CAPLET PO SCH (09:22)
[2022-03-02] MEDS: DILTIAZEM CD 120 MG CAPSULE PO SCH (09:22)
[2022-03-02] MEDS: FERROUS SULFATE 325 MG TABLET PO SCH ×3 (09:22→21:24)
[2022-03-02] MEDS: AMIODARONE 200 MG TABLET PO SCH (09:23)
[2022-03-02] MEDS: TICAGRELOR 90 MG TABLET PO SCH ×2 (09:23→21:24)
[2022-03-02] MEDS: POTASSIUM CHLORIDE 20 MEQ TABLET PO SCH (09:24)
[2022-03-02] MEDS: MAGNESIUM OXIDE 400 MG TABLET PO SCH ×3 (09:24→21:25)
[2022-03-02] MEDS: METOPROLOL TARTRATE 25 MG TABLET PO SCH ×2 (09:24→21:24)
[2022-03-02] MEDS: cefTAZidime 500 MG in SODIUM CHLORIDE 0.9% 100 ML IV SCH ×2 (12:12→23:15)
[2022-03-02] MEDS: GENTAMICIN INJ 240 MG in SODIUM CHLORIDE 0.9% 100 ML IV SCH (16:03)
[2022-03-02 16:31] LABS: Bacteria,Urine Occasional /HPF (Few); Mucus,Urine Occasional /LPF (Occasional)
[2022-03-02 16:32] LABS: Bilirubin,Urine Negative (Negative); Blood, Urine Moderate mg/dL (Negative); Glucose,Urine (UA) Negative (Negative); Ketones,Urine 15 mg/dL (Negative); Nitrite,Urine Negative (Negative); Protein,Urine 30 mg/dL (Negative); Urine Appearance Clear (Clear); Urine Color Yellow (Yellow); Urine Urobilinogen 0.2 eU/dL (<2.0); Urine pH 6.5 (4.5-8.0)
[2022-03-02] MEDS: ASPIRIN EC 81 MG TABLET PO SCH (21:24)
[2022-03-02] MEDS: ONDANSETRON 4 MG/2 ML VIAL IV PRN (21:25)
[2022-03-03] MEDS: SODIUM CHLORIDE 0.9% 1,000 ML IV SCH ×2 (04:12→05:27)
[2022-03-03] MEDS: PANTOPRAZOLE 40 MG TABLET PO SCH (05:25)
[2022-03-03 05:34] LABS: Basophils # 0.1 10*3/uL (0.0-0.2); Basophils % 1.2 % (0.0-0.8); Eosinophils # 0.3 10*3/uL (0.0-0.87); Eosinophils % 5.1 % (0.00-10.9); Hematocrit 27.2 VOL% (42.0-52.0); Hemoglobin 8.9 GM/DL (14.0-18.0); Immature Granulocytes % 0.5 %; Immature Granulocytes Absolute 0.03 #; Lymphocytes # 1.1 10*3/uL (1.4-4.0); Lymphocytes % 18.5 % (21.2-54.2); Mean Corpuscular HGB Conc 32.7 GM/DL (32-36); Mean Corpuscular Volume 91.6 FL (87-102); Mean Platelet Volume 9.9 FL (9.6-12.0); Monocytes # 0.8 10*3/uL (0.11-0.8); Monocytes % 13.5 % (1.7-12.7); Neutrophils % 61.2 % (38.7-73.9); Platelet Count 214 T/CUMM (130-400); Red Blood Count 2.97 MC/CUMM (3.8-5.5); Red Cell Distribution Width 15.5 % (9.3-17.3); White Blood Count 5.9 T/CUMM (4-12)
[2022-03-03 06:03] LABS: Calcium 8.9 MG/DL (8.5-10.1); Osmolality,Calculated 276.4 MOS/KG (273-304); Potassium 3.9 MMOL/L (3.5-5.1)
[2022-03-03] MEDS: POTASSIUM CHLORIDE 20 MEQ TABLET PO SCH (09:07)
[2022-03-03] MEDS: TICAGRELOR 90 MG TABLET PO SCH ×2 (09:07→20:29)
[2022-03-03] MEDS: SULFAMETHOX/TRIMETHOPRIM 800-160 MG TABLET PO SCH (09:07)
[2022-03-03] MEDS: ISOSORBIDE MONONITRATE 30 MG TABLET PO SCH (09:08)
[2022-03-03] MEDS: FERROUS SULFATE 325 MG TABLET PO SCH ×3 (09:08→20:29)
[2022-03-03] MEDS: MAGNESIUM OXIDE 400 MG TABLET PO SCH ×3 (09:09→20:29)
[2022-03-03] MEDS: BACILLUS COAGULANS CAPLET PO SCH (09:09)
[2022-03-03] MEDS: DILTIAZEM CD 120 MG CAPSULE PO SCH (09:09)
[2022-03-03] MEDS: METOPROLOL TARTRATE 25 MG TABLET PO SCH ×2 (09:09→20:29)
[2022-03-03] MEDS: AMIODARONE 200 MG TABLET PO SCH (09:10)
[2022-03-03] MEDS: ROSUVASTATIN 20 MG TABLET PO SCH (09:15)
[2022-03-03] MEDS: cefTAZidime 500 MG in SODIUM CHLORIDE 0.9% 100 ML IV SCH (11:33)
[2022-03-03] MEDS: ASPIRIN EC 81 MG TABLET PO SCH (20:28)
[2022-03-04] MEDS: PANTOPRAZOLE 40 MG TABLET PO SCH (05:46)
[2022-03-04] MEDS: BACILLUS COAGULANS CAPLET PO SCH (08:40)
[2022-03-04] MEDS: FERROUS SULFATE 325 MG TABLET PO SCH (08:41)
[2022-03-04] MEDS: ROSUVASTATIN 20 MG TABLET PO SCH (08:41)
[2022-03-04] MEDS: DILTIAZEM CD 120 MG CAPSULE PO SCH (08:42)
[2022-03-04] MEDS: ISOSORBIDE MONONITRATE 30 MG TABLET PO SCH (08:43)
[2022-03-04] MEDS: POTASSIUM CHLORIDE 20 MEQ TABLET PO SCH (08:43)
[2022-03-04] MEDS: TICAGRELOR 90 MG TABLET PO SCH (08:43)
[2022-03-04] MEDS: MAGNESIUM OXIDE 400 MG TABLET PO SCH (08:44)
[2022-03-04] MEDS: AMIODARONE 200 MG TABLET PO SCH (08:44)
[2022-03-04] MEDS: METOPROLOL TARTRATE 25 MG TABLET PO SCH (08:44)
[2022-03-04 08:46] VITALS: BP 124/65
== END 2022-03-04 11:08 | disposition swing bed (61) | DRG 261 ==
LOC: N.CL 10:49 → N.TELES 11:02
PROVIDERS: ADMIT Internal Medicine Cardiovascular Disease; ATTEND Internal Medicine Cardiovascular Disease